=== PATIENT | female | born 1960 | race African-American/Black ===

== ENCOUNTER → 2016-10-30 | Outpatient (CLI) | payer MEDICARE ==
[~2016-10-30] MED LIST: B COTAB3 PO; CRAN1000 PO; GABA600T OR; HYDR-2768 PO; IBUP600T26 PO; LEVO.1 PO; LISI10TA PO; METH1CHW3; NITR-29 PO; ORPH100T PO; POTA20IN3 PO; TRAM50 PO
[2016-10-30 12:37] LABS: ALKALINE PHOSPHATASE 86 U/L (45-117); ALT (GPT) 56 U/L (10-53); ANION GAP 6 MEQ/L (5-15); AST (GOT) 41 U/L (15-37); BICARBONATE 27.3 MEQ/L (21.0-32.0); BLOOD UREA NITROGEN 10 MG/DL (7-18); CHLORIDE 107 MEQ/L (98-107); FREE T4 1.01 NG/DL (0.76-1.46); GLOMERULAR FILTRATION RATE 93 ML/MIN (>89); GLUCOSE,FASTING 85 MG/DL (74-99); HDL CHOLESTEROL 57.9 MG/DL (40.0-60.0); LDL CHOLESTEROL 125 MG/DL (0-99); SODIUM (NA) 140 MEQ/L (136-145); TOTAL BILIRUBIN ADULT 0.2 MG/DL (0.2-1.0)
== END ==
LOC: ELAB 10:37
PROVIDERS: ATTEND Family Medicine
DX: I10 Essential (primary) hypertension (principal); E78.5 Hyperlipidemia, unspecified; E03.9 Hypothyroidism, unspecified
CPT/HCPCS: 36415; 80053; 80061; 84439; 84443

== ENCOUNTER 2017-01-03 19:24 | Emergency (ER) | payer MEDICARE ==
[2017-01-03 19:28] VITALS: BP 116/66; PULSE 88; RESP 16; TEMP 97.6; O2SAT 99
== END 2017-01-03 21:00 | disposition left against medical advice (07) ==
LOC: NED 19:24
DX: R07.81 Pleurodynia (principal); Z53.21 Procedure and treatment not carried out due to patient leaving prior to being seen by health care provider
CPT/HCPCS: 99281

== ENCOUNTER 2017-02-13 03:56 | Emergency (ER) | payer MEDICARE ==
[~2017-02-13] VITALS: Ht 172.7 cm; Wt 93.0 kg
[2017-02-13 03:59] VITALS: BP 152/94; PULSE 73; RESP 16; TEMP 97.7; O2SAT 100
[2017-02-13] MEDS ORDERED: ERYTOIN10 LEFT EYE (04:21)
--- NOTE | 2017-02-13 04:22 | PD ---
HPI Chief Complaint: Eye Problems/Injury Time Seen by Provider: 04:15 Travel History International Travel<30 days: No Contact w/Intl Traveler<30days: No Traveled to known affect area: No History of Present Illness HPI Patient is a 56-year-old female presenting to emergency room for evaluation of left lower eyelid pain and swelling. Patient states that started Sunday, it is irritated feeling. She denied any visual changes. Denies any fever, chills, headache. Patient does not wear contacts. [facility] Past Medical History Anemia: Yes Arthritis: Yes Asthma: Yes Autoimmune Disease: No Blood Disorders: No Anxiety: No Depression: Yes Heart Rhythm Problems: No Cancer: No High Cholesterol: No Chemotherapy: No Chest Pain: No Congestive Heart Failure: No COPD: No Diabetes: No Diminished Hearing: No Endocrine: No Gastrointestinal Disorders: No Genitourinary: No Headaches: Yes Hepatitis: No Hiatal Hernia: No Hypertension: Yes Immune Disorder: No Medical other: Yes (FOOT DROP ON RIGHT,NEUROPATHY) Musculoskeletal: No Neurologic: Yes Psychiatric: Yes Reproductive: No Respiratory: Yes (Asthma) Myocardial Infarction: No Radiation Therapy: No Sickle Cell Disease: No Sleep Apnea: No Thyroid Disease: Yes Tetanus Vaccination: Unknown Influenza Vaccination: No ?: Not Past Surgical History Abdominal Surgery: No AICD: No Body Medical Devices: BONE GRAFT L HIP Cardiac Surgery: No Ear Surgery: No Endocrine Surgery: No Eye Surgery: No Genitourinary Surgery: Yes (HYSTO IN , IN 83 & 85) Gynecologic Surgery: No Hysterectomy: Yes Joint Replacement: Yes (BILATERAL HIP REPLACEMENT/VASCULAR NECROSIS) Neurologic Surgery: Yes (SPINAL STIMULATOR R SIDE removed 2009) Oral Surgery: No Pacemaker: No Thoracic Surgery: No Tonsillectomy: Yes Other Surgery: Yes Social History Alcohol Use: No Tobacco Use: No Substance Use: No Allergies-Medications (Allergen,Severity, Reaction): Coded Allergies: acetaminophen (Unverified Allergy, Severe, Hives, 02/13/17) morphine (Unverified Allergy, Severe, HIVES, 02/13/17) oxycodone (Unverified Allergy, Severe, Hives, 02/13/17) Reported Meds & Prescriptions Reported Meds & Active Scripts Active Ultram (Tramadol HCl) 50 Mg Tab 50-100 Mg PO Q6 PRN FOR PAIN Norflex (Orphenadrine Citrate) 100 Mg Sayra 100 Mg PO BID Ibuprofen 600 Mg Tab 600 Mg PO Q8HR PRN Reported Synthroid 100 mcg (Levothyroxine Sodium) 100 Mcg Tab 100 Mcg PO DAILY Nitrofurantoin (Nitrofurantoin Macrocrystals) 100 Mg Cap 100 Mg PO DAILY Potassium Chloride CR 20 meq 20 Meq Tab 1 Tab PO DAILY Methylphenidate HCl 10 Mg Chw B Complex (Vitamin B Complex) Tab 1 Cap PO DAILY Cranberry (Cranberry (Vaccinium Macrocarp) 1,000 Mg Cap 1,680 Mg PO DAILY Hctz (Hydrochlorothiazide) 25 Mg Tab 25 Mg PO DAILY Lisinopril/Hctz 20 mg/12.5 mg 20 mg/12.5 mg Tab 1 Tab PO DAILY Gabapentin 600 Mg Tab 600 Mg OR DAILY Review of Systems Except as stated in HPI: all other systems reviewed are Neg Eyes: Positive: Other Physical Exam Narrative GENERAL: Well-developed, well-nourished, alert female. Resting comfortably in no acute distress. SKIN: Warm and dry. HEAD: Normocephalic. EYES: No scleral icterus. No injection or drainage. Stye to the mid left lower eyelid NECK: Supple, trachea midline. No JVD or lymphadenopathy. CARDIOVASCULAR: Regular rate and rhythm without murmurs, gallops, or rubs. RESPIRATORY: Breath sounds equal bilaterally. No accessory muscle use. GASTROINTESTINAL: Abdomen soft, non-tender, nondistended. MUSCULOSKELETAL: No cyanosis, or edema. BACK: Nontender without obvious deformity. No CVA tenderness. Data Data Last Documented VS Vital Signs Date Time Temp Pulse Resp B/P (MAP) Pulse Ox O2 Delivery O2 Flow Rate FiO2 02/13/17 03:59 97.7 73 16 152/94 (113) 100 Room Air [facility] Medical Decision Making Medical Screen Exam Complete: Yes Emergency Medical Condition: Yes Interpretation(s) Vital Signs Date Time Temp Pulse Resp B/P (MAP) Pulse Ox O2 Delivery O2 Flow Rate FiO2 02/13/17 03:59 97.7 73 16 152/94 (113) 100 Room Air Differential Diagnosis Cellulitis versus stye versus conjunctivitis versus other Narrative Course Patient is a 56-year-old female presenting for evaluation of left lower eyelid pain. Physical examination is consistent with a stye. Patient was advised to apply warm compresses frequently throughout the day. She was is that this is self-limiting and should resolve on its own in several days. She was encouraged to avoid eye makeup until stye has resolved. She was encouraged to return to emergency department for any new or worsening symptoms. She was encouraged to follow-up with an rolfer if needed. Patient verbalized understanding of instructions. Patient is stable for discharge. 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
== END 2017-02-13 04:42 | disposition home or self-care (01) ==
LOC: NEPD 03:56
DX: H00.015 Hordeolum externum left lower eyelid (principal); D64.9 Anemia, unspecified; M13.80 Other specified arthritis, unspecified site; J45.909 Unspecified asthma, uncomplicated; F32.9 Major depressive disorder, single episode, unspecified; I10 Essential (primary) hypertension; G62.9 Polyneuropathy, unspecified; M21.371 Foot drop, right foot; E07.9 Disorder of thyroid, unspecified
CPT/HCPCS: 99283